=== PATIENT | male | born 1980 | race Caucasian/White ===

== ENCOUNTER 2022-06-23 20:31 | Emergency (ER) | payer MEDICAID ==
[~2022-06-23 20:31] MED LIST: Iopamidol 370 76% 100 ML VIAL ONE
[2022-06-23] MEDS ORDERED: Sodium Chloride 0.9% 1,000 ML ONE (21:03)
[2022-06-23] MEDS ORDERED: Piperacillin/Tazobactam 4.5 GM VIAL ONE (21:03)
[2022-06-23 21:07] LABS: #Lymphocytes 0.6 thou/uL (1.20-3.40); #Monocytes 0.7 thou/uL (0.11-0.59); #Neutrophils 6.4 thou/uL (1.40-6.50); %Basophils 0.6 % (0.0-1.0); %Eosinophils 0.3 % (0.0-10.0); %Lymphocytes 7.5 % (21.0-51.0); %Monocytes 9.5 % (0.0-10.0); %Neutrophils 82.1 % (42.0-75.0); Hemoglobin 12.1 g/dL (14.0-18.0); Mean Corpuscular Hemoglobin 30.9 pg (27.0-31.0); Mean Corpuscular Volume 90.8 fl (78.0-98.0); Platelet Count 107 thou/uL (130-400); Platelet Morphology Comment Appears Decreased; RBC Distribution Width 12.9 % (11.5-14.5); RBC Morphology Normal; Red Blood Cell (RBC) Count 3.93 mill/uL (4.70-6.10); White Blood Cell (WBC) Count 7.8 thou/uL (4.8-10.8)
[2022-06-23 21:09] LABS: Amphetamine Not Detected (NotDetected); Barbiturates Screen Not Detected (NotDetected); Benzodiazepine Screen Not Detected (NotDetected); Bilirubin Negative (Negative); Blood, Urine Negative (Negative); Clarity Clear (Clear); Cocaine Metabolite Screen Not Detected (NotDetected); Glucose, Urine (Dipstick) Negative (Negative); Ketone, Urine Negative (Negative); Leukocyte Small (Negative); Medtox Control Line Valid? VALID (VALID); Methadone Not Detected (NotDetected); Methamphetamine Not Detected (NotDetected); Nitrite Negative (Negative); Opiate Screen Not Detected (NotDetected); Oxycodone Screen Not Detected (NotDetected); Phencyclidine (PCP) Not Detected (NotDetected); Protein, Urine (Dipstick) Negative (Neg-Trace); Specific Gravity, Urine 1.005 (1.002-1.036); THC/Cannabinoid Screen Not Detected (NotDetected); Tricyclic Screen Not Detected (NotDetected); Urobilinogen 0.2 mg/dL (Less than 2); pH, Urine 6.5 (5.0-9.0)
[2022-06-23 21:10] LABS: RBC/HPF None Seen HPF (0-3); Squamous Epithelial 0-3 HPF (0-3); WBC/HPF 0-3 HPF (0-3)
[2022-06-23 21:12] LABS: ALT (SGPT) 21 U/L (8-55); AST (SGOT) 20 U/L (5-34); Albumin 3.7 g/dL (3.5-5.0); Alkaline Phosphatase 85 U/L (40-110); Anion Gap 14 mmol/L (10-20); BUN (Urea Nitrogen) 14 mg/dL (8.9-20.6); Bilirubin, Total 0.3 mg/dL (0.2-1.2); Calc. Creatinine Clearance 0 mL/min (70-130); Calcium 9.2 mg/dL (7.8-10.44); Carbon Dioxide 22 mmol/L (22-29); Chloride 102 mmol/L (98-107); Estimated GFR 53; Globulin 3.3 g/dL (2.4-3.5); Glucose 122 mg/dL (70-105); Lipase 29 U/L (8-78); Magnesium 1.6 mg/dL (1.6-2.6); Potassium 3.6 mmol/L (3.5-5.1); Sodium 134 mmol/L (136-145)
[2022-06-23 21:20] LABS: Acetaminophen Less than 10.0 mcg/mL (10.0-30.0); Alcohol Less than 10 mg/dL (Less than 10); Salicylate Less than 8.0 mg/dL (15.0-30.0)
[2022-06-23] MEDS ORDERED: Tamsulosin HCl 0.4 MG CAP ONE (22:17)
[2022-06-23] MEDS ORDERED: Desmopressin 0.2 mg Tablet PO SCH (22:45)
[2022-06-23] MEDS ORDERED: Icosapent Ethyl 1 GM CAPSULE PO SCH (22:45)
[2022-06-23] MEDS ORDERED: OXcarbazepine 150 MG TAB PO SCH (22:45)
[2022-06-23 23:15] LABS: SARS-CoV-2 NAA Rapid Test Not Detected (NotDetected)
[2022-06-23] MEDS ORDERED: Ciprofloxacin 500 MG TAB ONE (23:54)
== END 2022-06-24 00:05 | disposition home or self-care (01) ==
LOC: MADERS 20:31
DX: R10.31 Right lower quadrant pain (principal); I45.6 Pre-excitation syndrome; D72.829 Elevated white blood cell count, unspecified; E11.22 Type 2 diabetes mellitus with diabetic chronic kidney disease; N18.9 Chronic kidney disease, unspecified; Z79.899 Other long term (current) drug therapy
CPT/HCPCS: 71045; 74177; 80053; 80306; 80307; 81003; 81015; 83605; 83690; 83735; 85025; 87040; 87077; 87086; 93005; J2543; J2597; J7050; Q9967